=== PATIENT | female | born 1995 | race Caucasian/White ===

== ENCOUNTER → 2020-05-30 | Outpatient (CLI) | payer OTHER ==
--- NOTE | 2020-05-30 11:06 | Diagnostic Imaging Report ---
INDICATION: Pain and swelling status post injury. COMPARISON: None. FINDINGS: Multiple radiographic views of the left ankle were obtained. There is no acute fracture or dislocation. No focal osseous lesions are seen. The surrounding soft tissue structures are unremarkable. There are no radiopaque foreign bodies. IMPRESSION: 1. No acute fracture or dislocation in the left ankle. Dictated by: Dictated on workstation # [id number]
== END ==
LOC: RAD FS 09:36
PROVIDERS: ATTEND Nurse Practitioner
DX: M25.472 Effusion, left ankle (principal); Z87.828 Personal history of other (healed) physical injury and trauma
CPT/HCPCS: 73610